=== PATIENT | female | born 1970 | race Caucasian/White ===

== ENCOUNTER 2023-12-20 23:35 | Emergency (ER) | payer BC ==
[~2023-12-20] VITALS: Ht 165.1 cm; Wt 69.0 kg
[2023-12-20 23:43] VITALS: TEMP 99.4; O2SAT 98
[2023-12-21] MEDS: SODIUM CHLORIDE 0.9% 1,000 ML IV ONE (00:45)
[2023-12-21 01:03] LABS: BASOPHILS % 0.6 % (0.0-2.0); EOSINOPHILS % 1.2 % (0.0-5.0); HEMATOCRIT. 37.1 % (36.0-48.0); HEMOGLOBIN. 12.9 g/dL (12.0-16.0); LYMPHOCYTES % 14.5 % (20.0-50.0); MEAN CORPUSCULAR HEMOGLOBIN 30.9 pg (28.0-32.0); MEAN CORPUSCULAR HGB CONC 34.6 g/dL (31.0-37.0); MEAN CORPUSCULAR VOLUME 89.1 fL (81.0-99.0); MEAN PLATELET VOLUME 8.6 fl (7.4-10.4); MONOCYTES % 7.3 % (2.0-8.0); NEUTROPHILS % 76.4 % (40.0-76.0); PLATELET 234 x1000/uL (130-400); RED BLOOD CELL COUNT 4.16 mill/uL (4.2-5.4); RED CELL DISTRIBUTION WIDTH 13.3 % (11.6-14.6); WHITE BLOOD COUNT 8.5 x1000/uL (4.5-11.0)
[2023-12-21 01:10] LABS: CHLORIDE 106 mEq/L (98-107); POTASSIUM 3.7 mEq/L (3.5-5.1); SODIUM 143 mEq/L (136-145)
[2023-12-21 01:11] LABS: CALCIUM 9.7 mg/dL (8.7-10.4); CARBON DIOXIDE 30 mEq/L (21-32)
[2023-12-21 01:16] LABS: CREATININE 0.8 mg/dL (0.6-1.0); GLUCOSE 98 mg/dL (70-105); UREA NITROGEN BLOOD 10 mg/dL (9-23)
[2023-12-21 01:21] LABS: TROPONIN I HIGH SENSITIVITY < 4 ng/L (3.0-34)
[2023-12-21 01:22] LABS: ETHANOL BLOOD < 10 mg/dL (<10)
[2023-12-21 03:41] LABS: TROPONIN I HIGH SENSITIVITY < 4 ng/L (3.0-34)
[2023-12-21 06:27] VITALS: BP 126/94; PULSE 74; RESP 18; O2SAT 100
== END 2023-12-21 06:28 | disposition home or self-care (01) ==
LOC: ER 23:35
DX: R42 Dizziness and giddiness (principal); R53.1 Weakness; F41.9 Anxiety disorder, unspecified
CPT/HCPCS: 99285; 80048; 80320; 83605; 85025; 84484; 36415; 71045; 70450; 93005; 96360; 96361; J7030; G0480